=== PATIENT | female | born 1965 | race American Indian/Alaskan Native ===

== ENCOUNTER 2019-03-27 08:00 | Outpatient (CLI) | payer BC ==
--- NOTE | 2019-03-27 10:50 | Mammography Report ---
DIGITAL SCREENING MAMMOGRAM WITH CAD, 03/27/2019 INDICATION: Routine screening mammography. TECHNIQUE: Digital bilateral 2D mammography was obtained in the craniocaudal and mediolateral obliq ue projections. This examination was interpreted with the benefit of Computer-Aided Detection analysi s. COMPARISON: None available. FINDINGS: Breast Density: The breasts are almost entirely fatty. There is no evidence of dominant mass, suspicious calcifications or architectural distortion in eithe r breast. IMPRESSION: No mammographic evidence of malignancy. Follow up recommendation: Routine yearly BI-RADS Category 1: Negative. A "normal" or negative report should not discourage follow up or biopsy of a clinically significant f inding. A written summary of these findings will be mailed to the patient. The patient will be entered into a mammography reporting system which will generate a reminder letter for the patient's next appointmen t at the appropriate interval. The [employer] recommends yearly mammograms starting at age 40 and continuing as l damien as a woman is in good health. Breast MRI is recommended for women with an approximate 20-25% or greater lifetime risk of breast cancer, including women with a strong family history of breast or ova clif[place] cancer or who have been treated for Hodgkin's disease. Signer Name: Fortunato Agudelo MD Signed: 03/27/2019 10:46 AM Workstation Name: [id number]
--- NOTE | 2019-03-27 12:06 | Vascular Lab Report ---
DUPLEX DOPPLER LOWER EXTREMITY VEINS, RIGHT INDICATION: LYMPHEDEMA OF RIGT LOWER EXTREMITY. TECHNIQUE: Duplex doppler imaging was performed through the veins of the right lower extremity using venous compression and other maneuvers. COMPARISON: No relevant prior imaging study available. FINDINGS: Right Common femoral vein: Negative. Right Superficial femoral vein: Negative. Right Popliteal vein: Negative. Right Calf veins: Negative. Additional findings: Venous reflux is noted in the right greater saphenous vein from the saphenofemor al junction to the proximal calf. IMPRESSION: No sonographic evidence for DVT in the right lower extremity. Venous reflux as described. Signer Name: Donny Banuelos Jr, MD Signed: 03/27/2019 12:01 PM Workstation Name: [id number]
== END 2019-03-27 08:01 | disposition home or self-care (01) ==
LOC: VAS 08:00
PROVIDERS: ATTEND Internal Medicine
DX: Z12.31 Encounter for screening mammogram for malignant neoplasm of breast (principal); I87.2 Venous insufficiency (chronic) (peripheral)
CPT/HCPCS: 77067